=== PATIENT | female | born 1930 | race Caucasian/White ===

== ENCOUNTER 2016-12-12 09:05 | Emergency (ER) | payer MEDICARE, OTHER ==
[2016-12-12 09:25] VITALS: BP 161/78
--- NOTE | 2016-12-12 10:24 | EDM.PDOC ---
ED HPI GENERAL MEDICAL PROBLEM - General Chief Complaint: ENT Problem Stated Complaint: COUGH / LOSS OF VOICE Time Seen by Provider: 12/12/16 09:41 Source of Information: Reports: Patient History Limitations: Reports: No Limitations - History of Present Illness INITIAL COMMENTS - FREE TEXT/NARRATIVE: History of present illness: [86-year-old female presents with a cough coming on the last several days and a little bit of laryngitis. She's having trouble sleeping at night because of the cough. It is minimally productive. No fevers or chills or shortness of breath.] Review of systems: As per history of present illness and below otherwise all systems reviewed and negative. Past medical history: As per history of present illness and as reviewed below otherwise noncontributory. Surgical history: As per history of present illness and as reviewed below otherwise noncontributory. Social history: No reported history of drug or alcohol abuse. Family history: As per history of present illness and as reviewed below otherwise noncontributory. Physical exam: HEENT: Atraumatic, normocephalic, pupils reactive, negative for conjunctival pallor or scleral icterus, mucous membranes moist, throat clear, neck supple, nontender, trachea midline. Lungs: Clear to auscultation, breath sounds equal bilaterally, chest nontender. Heart: S1S2, regular, negative for clicks, rubs, or JVD. Abdomen: Soft, nondistended, nontender. Negative for masses or hepatosplenomegaly. Negative for costovertebral tenderness. Pelvis: Stable nontender. Genitourinary: Deferred. Rectal: Deferred. Extremities: Atraumatic, negative for cords or calf pain. Neurovascular unremarkable. Neuro: Awake, alert, oriented. Cranial nerves II through XII unremarkable. Cerebellum unremarkable. Motor and sensory unremarkable throughout. Exam nonfocal. Diagnostics: [] Therapeutics: [] Impression: [bronchitis with reactive airway component suspected] Plan: [I'm going to provide her with a Z-Juwan and albuterol MDI and prednisone 20 mg 1 by mouth twice a day for 5 days. She's otherwise healthy and strong and so I think she should do well with this] Definitive disposition and diagnosis as appropriate pending reevaluation and review of above. - Related Data Allergies Allergy/AdvReac Type Severity Reaction Status Date / Time Penicillins Allergy Nausea Verified 12/12/16 09:28 Pitgmts-Lsb-Gnf Reductase Allergy Joint Pain Verified 12/12/16 09:28 Inhibitor Home Meds: Home Meds Aspirin/Calcium Carbonate/Mag [Aspirin Buffered 325 mg Tab] 12/12/16 [History] Levothyroxine 12/12/16 [History] Losartan [Cozaar] 12/12/16 [History] amLODIPine Besylate [Amlodipine Besylate] 12/12/16 [History] Past Medical History Endocrine/Metabolic History: Reports: Hypoparathyroidism - Past Surgical History GI Surgical History: Reports: Appendectomy, Cholecystectomy Social & Family History - Tobacco Use Smoking Status *Q: Never Smoker ED ROS ENT - Review of Systems Review Of Systems: ROS reveals no pertinent complaints other than HPI. ED EXAM, ENT - Physical Exam Exam: See Below Course - Vital Signs Last Recorded V/S: Last Vital Signs Temp 36.3 C 12/12/16 09:39 Pulse 91 12/12/16 09:39 Resp 16 12/12/16 09:39 BP 161/78 H 12/12/16 09:39 Pulse Ox 95 12/12/16 09:39 Departure - Departure Time of Disposition: 10:23 Disposition: Home, Self-Care 01 Condition: good Clinical Impression: Bronchitis - Discharge Information Forms: ED Department Discharge Additional Instructions: please followup with your primary care doctor in the next week or 2 if you are not improving in spite of the treatment that we are giving you. It was a pleasure to meet you today.
== END 2016-12-12 10:43 | disposition home or self-care (01) ==
LOC: JP.ED 09:05
DX: J40 Bronchitis, not specified as acute or chronic (principal); E20.9 Hypoparathyroidism, unspecified; Z79.82 Long term (current) use of aspirin; Z79.899 Other long term (current) drug therapy; Z88.0 Allergy status to penicillin; Z88.8 Allergy status to other drugs, medicaments and biological substances; Z90.49 Acquired absence of other specified parts of digestive tract
CPT/HCPCS: 99283